=== PATIENT | female | born 2005 | race Caucasian/White ===

== ENCOUNTER 2025-01-30 17:33 | Emergency (ER) | payer BC, MEDICAID ==
[~2025-01-30] VITALS: Ht 154.9 cm; Wt 45.5 kg
[~2025-01-30 17:33] MED LIST: DIPH-518 PO; HYDR20OI TP; POLY10DR EACHEYE
[2025-01-30 17:39] VITALS: BP 119/74; PULSE 83; RESP 18; TEMP 98.9; O2SAT 100
== END 2025-01-30 19:12 | disposition home or self-care (01) ==
LOC: ER 17:35
DX: M25.562 Pain in left knee (principal); Z88.0 Allergy status to penicillin; Z90.89 Acquired absence of other organs
CPT/HCPCS: 73564; 99283